=== PATIENT | male | born 1985 | race African-American/Black ===

== ENCOUNTER 2018-06-22 12:39 | Emergency (ER) | payer MEDICAID ==
[~2018-06-22] VITALS: Ht 195.6 cm; Wt 105.0 kg
[2018-06-22] MEDS ORDERED: LIDOCAINE HCL 1% 20ML VIAL (Pyxis) INJ INFIL ONE (14:45)
[2018-06-22] MEDS ORDERED: TETANUS, DIPHTHERIA, PERTUSSIS VAC/PF 0.5ML (>7YR OLD) IM ONE (14:45)
[2018-06-22] MEDS ORDERED: LIDOCAINE HCL 1% 10 MG/ML 10ML VIAL IJ NR (15:00)
[2018-06-22 16:25] VITALS: BP 142/85
== END 2018-06-22 16:27 | disposition home or self-care (01) ==
LOC: ER 14:09
DX: S02.2XXA Fracture of nasal bones, initial encounter for closed fracture (principal); S01.01XA Laceration without foreign body of scalp, initial encounter; H11.31 Conjunctival hemorrhage, right eye; R05 Cough; R55 Syncope and collapse; F17.200 Nicotine dependence, unspecified, uncomplicated; F12.10 Cannabis abuse, uncomplicated; I10 Essential (primary) hypertension; Y08.89XA Assault by other specified means, initial encounter; Y93.89 Activity, other specified; Y92.89 Other specified places as the place of occurrence of the external cause; Y99.8 Other external cause status; Z88.6 Allergy status to analgesic agent
CPT/HCPCS: 12002; 70450; 71045; 72125; 99284; J3490; X7700; Z7610